=== PATIENT | female | born 1935 | race Two or more races ===

== ENCOUNTER 2017-09-21 17:06 | Emergency (ER) | payer SELFPAY ==
[~2017-09-21] VITALS: Ht 152.4 cm; Wt 67.1 kg
[2017-09-21] MEDS ORDERED: ACETAMINOPHEN ES 500 MG TABLET ONE (18:21)
[2017-09-21] MEDS: ACETAMINOPHEN ES 500 MG TABLET PO ONE (18:21)
[2017-09-21] MEDS ORDERED: predniSONE 20 MG TABLET ONE (18:41)
[2017-09-21] MEDS ORDERED: INDOMETHACIN 25 MG CAPSULE ONE (18:41)
--- NOTE | 2017-09-21 18:48 | NUR ---
Patient discharged to home in stable conditon. Written and verbal after care instructions given by dr. el Patient verbalizes understanding of instructions.kaye arenas from second floor provided translation from [place].
[2017-09-21] MEDS: INDOMETHACIN 25 MG CAPSULE PO ONE (19:09)
[2017-09-21] MEDS: predniSONE 20 MG TABLET PO ONE (19:10)
== END 2017-09-21 18:55 | disposition home or self-care (01) ==
LOC: ER 17:09
DX: M06.9 Rheumatoid arthritis, unspecified (principal)
CPT/HCPCS: 29125; 73110; 99284; A4663; A9150; J7512